=== PATIENT | female | born 1930 | race Caucasian/White ===

== ENCOUNTER 2018-01-21 22:32 | Emergency (ER) | payer MEDICARE, MEDICAID ==
[~2018-01-21] VITALS: Ht 170.2 cm; Wt 70.9 kg
[2018-01-21 22:38] VITALS: TEMP 96.8
[2018-01-21 23:05] LABS: BASO # 0.1 (0.0-0.2); BASO % 0.8 % (0.0-2.0); EOS # 0.4 (0.0-0.7); EOS % 4.2 % (0-4.0); GRAN # 4.7 (1.4-6.5); GRAN % 52.5 % (42.2-75.2); HEMATOCRIT 46.1 % (37.0-47.0); LYMPH # 2.8 (1.2-3.4); LYMPH % 31.8 % (20.0-51.0); MEAN CELL VOLUME 95 fl (80.0-100.0); MEAN CORPUSCULAR HEMOGLOBIN 31 pg (27.0-31.0); MEAN CORPUSCULAR HGB CONC 33 g/dl (33.0-37.0); MEAN PLATELET VOLUME 10.6 fl (7.4-10.4); MONO # 0.9 (0.1-0.6); MONO % 10.3 % (1.7-9.3); PLATELET COUNT 246 K/mm3 (130-400); RED BLOOD COUNT 4.84 M/mm3 (4.10-5.30); REDCELL DISTRIBUTION WIDTH-CV 13.2 % (11.5-14.5)
[2018-01-21 23:14] LABS: ALBUMIN 3.8 gm/dL (3.5-5.0); BILIRUBIN,TOTAL 0.5 mg/dL (0.0-1.0); CALCIUM 9.6 mg/dL (8.4-10.2); CREATININE, serum 0.95 mg/dL (0.52-1.25); POTASSIUM 3.5 mmol/L (3.4-5.0); TOTAL PROTEIN 7.2 gm/dL (6.4-8.2)
[2018-01-21] MEDS ORDERED: ACCUPRIL20TAB PO (23:41)
[2018-01-21] MEDS ORDERED: ASPIRIN 81M81 MG/TA2 PO (23:41)
[2018-01-21] MEDS ORDERED: MULTI VITAMINS1 TAB PO (23:41)
[2018-01-21] MEDS ORDERED: NORVASC 5MG5 MG/TAB PO (23:41)
[2018-01-21] MEDS ORDERED: CALTRATE-600 W600 MG PO (23:42)
[2018-01-21] MEDS ORDERED: PRAVACHOL 40MG40 MG PO (23:42)
[2018-01-22] MEDS ORDERED: ANTIVERT 12.512.5 MG PO (01:50)
[2018-01-22] MEDS ORDERED: ZOFRAN 4MG T4 MG/TAB PO (01:50)
[2018-01-22 01:56] VITALS: BP 130/67; PULSE 79
== END 2018-01-22 02:00 | disposition home or self-care (01) ==
LOC: COL.ER 22:32
PROVIDERS: Emergency Medicine
DX: R42 Dizziness and giddiness (principal); I10 Essential (primary) hypertension; E78.5 Hyperlipidemia, unspecified; Z79.82 Long term (current) use of aspirin
CPT/HCPCS: J2405